=== PATIENT | female | born 2000 | race Two or more races ===

== ENCOUNTER 2024-09-13 11:19 | Emergency (ER) | payer SELFPAY ==
[~2024-09-13] VITALS: Ht 157.5 cm; Wt 65.8 kg
[2024-09-13] MEDS ORDERED: LIDOCAINE 5% (PATCH) 1 EA PATCH TP ONE (12:16)
[2024-09-13] MEDS ORDERED: KETOROLAC TROMETHAMINE 15 MG/ML VIAL ONE (12:16)
[2024-09-13] MEDS ORDERED: CYCLOBENZAPRINE 10 MG TABLET ONE (12:17)
[2024-09-13] MEDS ORDERED: LIDO30AD10 TP (12:18)
[2024-09-13] MEDS ORDERED: CYCL5TAB PO (12:18)
[2024-09-13] MEDS ORDERED: IBUP-1955 PO (12:18)
[2024-09-13] MEDS: LIDOCAINE 5% (PATCH) 1 EA PATCH TP STA (12:27)
[2024-09-13] MEDS: KETOROLAC TROMETHAMINE 15 MG/ML VIAL IM ONE (12:28)
[2024-09-13] MEDS: CYCLOBENZAPRINE 10 MG TABLET PO ONE (12:28)
[2024-09-13 12:31] VITALS: BP 126/81; TEMP 98.1; O2SAT 99
[2024-09-13] MEDS ORDERED: IOHEXOL-300 100 ML VIAL IV ONE (13:24)
[2024-09-13] MEDS ORDERED: IV NS 0.9% 250 ML IV ONE (13:25)
== END 2024-09-13 12:31 | disposition home or self-care (01) ==
LOC: ER 11:34
DX: S16.1XXA Strain of muscle, fascia and tendon at neck level, initial encounter (principal); S29.012A Strain of muscle and tendon of back wall of thorax, initial encounter; Z87.39 Personal history of other diseases of the musculoskeletal system and connective tissue; V43.62XA Car passenger injured in collision with other type car in traffic accident, initial encounter; Y93.89 Activity, other specified; Y92.488 Other paved roadways as the place of occurrence of the external cause; Y99.8 Other external cause status
CPT/HCPCS: 99283; 96372; J1885; J7050; Q9967